=== PATIENT | female | born 1995 | race African-American/Black ===

== ENCOUNTER 2017-11-18 05:26 | Inpatient (IN) | payer OTHER ==
[2017-11-18 06:07] VITALS: BMI 27.8
[2017-11-18] MEDS ORDERED: Acetaminophen 500 MG TAB PO PRN (06:28)
[2017-11-18] MEDS ORDERED: Ondansetron HCl/PF 4 MG/2 ML Vial IVP PRN (06:28)
[2017-11-18] MEDS ORDERED: Promethazine HCl 25 MG/ML VIAL IM PRN (06:28)
[2017-11-18] MEDS ORDERED: Butorphanol Tartrate 1 MG/ML VIAL SLOW IVP PRN (06:28)
[2017-11-18] MEDS ORDERED: Misoprostol 200 MCG TAB RC PRN (06:30)
[2017-11-18] MEDS ORDERED: NS w/ Oxytocin 10 units 500 ML IV SCH ×2 (06:30)
[2017-11-18] MEDS ORDERED: Carboprost 250 MCG/ML AMP IM PRN (06:30)
[2017-11-18] MEDS ORDERED: Ibuprofen 800 MG TAB PO PRN (06:30)
[2017-11-18] MEDS ORDERED: Lidocaine 1% (PF) 30 ML VIAL SC PRN (06:30)
[2017-11-18] MEDS ORDERED: Methylergonovine 0.2 MG/ML VIAL IM PRN (06:30)
[2017-11-18] MEDS: Lactated Ringer's 1,000 ML IV SCH ×2 (06:45→09:05)
[2017-11-18 07:25] LABS: Hemoglobin 11.8 g/dL (12.0-16.0); Mean Corpuscular HGB CONC 33.2 g/dL (32.0-36.0); Mean Corpuscular Hemoglobin 27.2 pg (25.0-35.0); Mean Corpuscular Volume 82.1 fL (78.0-98.0); Mean Platelet Volume 8.5 fL (7.4-10.4); Platelet Count 165 thou/uL (130-400); RBC Distribution Width 11.5 % (11.5-14.5); Red Blood Cell (RBC) Count 4.33 mill/uL (4.00-5.20); White Blood Cell (WBC) Count 6.8 thou/uL (4.8-10.8)
[2017-11-18 07:53] LABS: HBSAg Index 0.17 S/CO (0-0.99); HIV (1/2) Antibody/Antigen Non-Reactive (NonReactive); HIV 1/2 INDEX 0.11 S/CO (<1.00); Hep B Surf Ag Non-Reactive S/CO (NonReactive); Syphilis Antibody Nonreactive (Nonreactive); Syphilis Antibody Index 0.03 S/CO (<1.00 Non-Reactive)
[2017-11-18] MEDS ORDERED: DISCONTINUE ALL PREVIOUS NARCOTICS FS SCH (08:30)
[2017-11-18] MEDS ORDERED: Bupivacaine 0.5% 20 ML, fentaNYL Citrate/PF 400 MCG in Sodium Chloride 0.9% 72 ML EPIDURAL SCH (08:30)
--- NOTE | 2017-11-18 09:02 | PDOC.LDHP ---
Labor and Delivery H&P Chief complaint: scheduled induction HPI: 39 week . Here for elective pitocin induction of labor. No c/o. Current gestational age (weeks): 39 Due date: 11/25/17 Dating criteria: last menstrual period, second trimester ultrasound Grav: 2 Para: 1 Current complications: none Abnormal US findings: No Current medications: pre-madan vitamins Previous surgical history: none Allergies/Adverse Reactions: Allergies Allergy/AdvReac Type Severity Reaction Status Date / Time No Known Allergies Allergy Verified 11/18/15 06:57 Social history: none - Physical Exam General: NAD, resting, breathing through contractions Heart: RRR Lungs: nonlabored breathing Abdomen: NTTP Extremeties: no edema FHT: category 1, variability present - Vaginal Exam cm dilated: 4 Effacement: 75% Station: -1 - OB Labs Blood type: O RH: positive Antibody Screen: negative HIV: negative RPR: negative HEPSAg: negative 1 hour GCT: negative GBS: negative Urine drug screen: not done Rubella: immune - Assessment L&D Assessment: elective induction at term - Plan Plan: admit to L&D, labor augmentation if indicated (Start pitocin. FWB reassuring. Anticipate . Epidural if wanted.)
[2017-11-18] MEDS ORDERED: Naloxone HCl 0.4 mg/ml Vial IVP PRN ×4 (09:31→09:32)
[2017-11-18] MEDS ORDERED: Lactated Ringer's 500 ML IV PRN ×2 (09:31→09:32)
[2017-11-18] MEDS ORDERED: ePHEDrine/0.9% NaCl/PF SYRINGE 50 mg/10 ml SLOW IVP PRN ×2 (09:31→09:32)
[2017-11-18] MEDS ORDERED: Eucerin (Mineral Oil/Petrolatum,White) 30 gm Jar TOP PRN ×2 (09:31→09:32)
[2017-11-18] MEDS ORDERED: fentaNYL Citrate/PF 400 MCG, Bupivacaine 0.5% 20 ML in Sodium Chloride 0.9% 72 ML EPIDURAL SCH (09:45)
[2017-11-18] MEDS ORDERED: Communication Order-Pharmacy FS SCH ×2 (09:45)
[2017-11-18] MEDS: NS / Oxytocin 40 units/1000ml 1,000 ML IV SCH ×2 (14:18→15:08)
--- NOTE | 2017-11-18 14:38 | PDOC.OPDEL ---
OB Operative/Delivery Note Delivery Dr/Surgeon: Reed Pre-Delivery Diagnosis: elective induction Procedure/Post Delivery Dx: spontaneous vaginal delivery Weeks gestation: 39 Anesthesia: epidural - Findings New Baby Sex: male - 1 min: 9 - 5 min: 9 - Additional Findings/Plan Placenta delivered: spontaneous Repaired Obstetrical Laceration: none Estimated blood loss: 240ml Compilations/Other Findings: Progressed to complete and pushing. Delivered a live male. Head OA. Shoulders and body easily followed. No nuchal cord. Mouth and nares bulb suctioned, baby dried and stimulated, and placed on mom's abdomen. Cord blood sent. Uterine fundus firm following delivery. Post delivery plan: routine recovery
[2017-11-18] MEDS ORDERED: Benzocaine/Menthol 20-0.5% 60 ML CAN TOP PRN (17:17)
[2017-11-18] MEDS ORDERED: Adacel (T-DAP) 0.5 ML VIAL IM ONE (17:17)
[2017-11-18] MEDS ORDERED: NS / Oxytocin 40 units/1000ml 1,000 ML IV SCH (17:17)
[2017-11-18] MEDS ORDERED: HYDROcodone/Acetaminophen 5/325 mg Tablet PO PRN (17:17)
[2017-11-18] MEDS ORDERED: Lanolin Ointment 7 GM TUBE TOP PRN (17:17)
[2017-11-18] MEDS ORDERED: Milk Of Magnesia 30 ML UDCUP PO PRN (17:17)
[2017-11-18] MEDS ORDERED: Bisacodyl 10 MG SUPP PR PRN (17:17)
[2017-11-18] MEDS ORDERED: Ferrous Sulfate 325 MG TAB PO SCH (18:00)
[2017-11-18] MEDS: Docusate Calcium (SURFAK) 240 MG CAP PO SCH (20:44)
[2017-11-18] MEDS: Ibuprofen 800 MG TAB PO SCH (20:44)
[2017-11-19 01:11] VITALS: TEMP 98.4
[2017-11-19] MEDS: Ibuprofen 800 MG TAB PO SCH (05:59)
[2017-11-19] MEDS ORDERED: Ferrous Sulfate 325 MG TAB PO SCH (08:00)
[2017-11-19] MEDS: Docusate Calcium (SURFAK) 240 MG CAP PO SCH (10:59)
--- NOTE | 2017-11-19 13:15 | PDOC.PP ---
Post Progress Note Post Day #: 1 Subjective: No c/o. Feeling well. No pain. Lochia normal. PO intake tolerated: yes Flatus: yes Ambulation: yes Vital Signs (12 hours) Temp Pulse Resp BP BP 11/19/17 12:10 98.4 F 79 18 11/19/17 12:00 98.4 F 79 18 110/65 11/19/17 10:10 98.1 F 84 20 11/19/17 07:30 98.1 F 84 20 105/66 105/56 L 11/19/17 05:15 98.4 F 95 16 100/75 Weight Weight 138 lb - Physical Examination General: NAD Cardiovascular: no m/r/g, RRR Respiratory: clear to auscultation bilaterally, non-labored breathing Abdominal: + bowel sounds, lochia, no distention, appropriately TTP Psychiatric: A&Ox3, normal affect Result Diagrams: 11/18/17 06:34 Additional Labs: Post Labs Blood Type O POSITIVE 11/18/17 06:34 Hep Bs Antigen Non-Reactive S/CO (NonReactive) 11/18/17 06:34 (1) Vaginal delivery Code(s): O80 - ENCOUNTER FOR FULL-TERM UNCOMPLICATED DELIVERY Status: Acute - Assessment/Plan Routine PP care D/C home today F/U in 6 weeks.
[2017-11-19 13:28] VITALS: BP 110/65
== END 2017-11-19 17:20 | disposition home or self-care (01) | DRG 775 ==
LOC: L&D 05:26 → 3SW 17:26
PROVIDERS: ADMIT Family Medicine; ATTEND Family Medicine
PROC: 10E0XZZ Delivery of Products of Conception, External Approach (ICD-10-PCS; principal; 2017-11-18)
PROC: 10907ZC Drainage of Amniotic Fluid, Therapeutic from Products of Conception, Via Natural or Artificial Opening (ICD-10-PCS; 2017-11-18)
PROC: 3E033VJ Introduction of Other Hormone into Peripheral Vein, Percutaneous Approach (ICD-10-PCS; 2017-11-18)
DX: O80 Encounter for full-term uncomplicated delivery (principal); Z3A.39 39 weeks gestation of pregnancy; Z37.0 Single live birth
CPT/HCPCS: 51702; 85027; 86780; 86850; 86900; 86901; 87340; 87389; J2405; J3010; J3490; J7050